=== PATIENT | female | born 1950 | race Caucasian/White ===

== ENCOUNTER 2018-12-30 10:37 | Emergency (ER) | payer OTHER ==
[~2018-12-30] VITALS: Ht 157.5 cm; Wt 75.7 kg
[2018-12-30 10:37] VITALS: BP_SYST 133
--- NOTE | 2018-12-30 10:37 | NUR ---
Patient triaged and placed in waiting room. VSS and patient appears in no acute distress at this time. Accompanied by SELF, awaiting available bed, and MD notified of need for MSE.
--- NOTE | 2018-12-30 11:20 | NUR ---
PT STATED THAT SHE DOES NOT WANT TO WAIT TO BE SEEN, PT LEFT WITHOUT BEING SEEN BY MD
== END 2018-12-30 11:22 | disposition left against medical advice (07) ==
LOC: SED 10:37
DX: M79.671 Pain in right foot (principal); M79.672 Pain in left foot; Z53.21 Procedure and treatment not carried out due to patient leaving prior to being seen by health care provider